=== PATIENT | male | born 1990 ===

== ENCOUNTER 2025-06-02 18:08 | Observation (INO) | payer OTHER ==
[~2025-06-02] VITALS: Ht 185.4 cm; Wt 58.1 kg
[2025-06-02 19:30] LABS: BASOPHILS ABSOLUTE AUTO 0.02 K/mm3 (0.00-0.23); BASOPHILS PERCENT AUTO 0 % (0-2); EOSINOPHILS ABSOLUTE AUTO 0.22 K/mm3 (0.00-0.68); EOSINOPHILS PERCENT AUTO 3 % (0-6); Hematocrit 43.6 % (37.0-53.0); Hemoglobin 14.9 g/dL (13.5-17.5); IMMATURE GRAN ABSOLUTE AUTO 0.03 K/mm3 (0.00-0.10); IMMATURE GRAN PERCENT AUTO 0 % (0-1); LYMPHOCYTES ABSOLUTE AUTO 0.76 K/mm3 (0.84-5.20); LYMPHOCYTES PERCENT AUTO 9 % (21-46); MONOCYTES ABSOLUTE AUTO 0.94 K/mm3 (0.16-1.47); MONOCYTES PERCENT AUTO 11 % (4-13); Mean Corpuscular HGB Conc 34.2 g/dL (31.5-36.5); Mean Corpuscular Volume 91 fL (80-100); NEUTROPHILS ABSOLUTE AUTO 6.84 K/mm3 (1.96-9.15); NEUTROPHILS PERCENT AUTO 78 % (41-73); NRBC ABSOLUTE 0.00 K/mm3 (0.00-0.02); NRBC Auto 0.0 /100 WBC (0.0-0.2); Platelet Count 228 K/mm3 (150-400); RDW Coefficient Variation 12.9 % (11.7-14.2); RDW Standard Deviation 42.5 fL (35.1-46.3)
[2025-06-02 19:42] LABS: Alanine Aminotransfer (ALT/SGP 22.0 U/L (12-78); Albumin, Blood 4.3 g/dL (3.4-5.0); Albumin/Globulin Ratio 1.1 (0.8-1.8); Anion Gap 8.0 mmol/L (3-11); Aspartate Aminotrans (AST/SGOT 22.0 U/L (12-37); Bilirubin, Total 1.0 mg/dL (0.1-1.0); Blood Urea Nitrogen 11.0 mg/dL (8-24); CO2, Blood 26.0 mmol/L (21-32); Calcium, Blood 8.8 mg/dL (8.5-10.1); Chloride, Blood 104.0 mmol/L (98-108); Creatinine, Blood 0.97 mg/dL (0.60-1.20); Globulin, Blood 3.8 g/dL (2.2-4.0); Glucose, Blood 111.0 mg/dL (70-99); Potassium, Blood 3.3 mmol/L (3.5-5.5); Sodium, Blood 135.0 mmol/L (136-145); Total Protein, Blood 8.1 g/dL (6.4-8.2)
[2025-06-02] MEDS ORDERED: NS 1,000 ML IV SCH (20:30)
[2025-06-02] MEDS ORDERED: Albuterol 2.5 MG/3 ML VIAL INH SCH ×2 (20:30→21:30)
[2025-06-02] MEDS ORDERED: Mag Sulfate 1 GM/D5% 100ML 100 ML IV ONE (21:25)
[2025-06-02 21:30] LABS: Influenza A, PCR NEGATIVE (NEGATIVE); Influenza B, PCR NEGATIVE (NEGATIVE); Resp Syncytial Virus, PCR NEGATIVE (NEGATIVE); SARS-Cov-2 (COVID-19) PCR, MMC NEGATIVE (NEGATIVE)
[2025-06-02] MEDS ORDERED: Ipratropium/Albuterol SulF 2.5-0.5MG/3 ML Amp INH PRN (22:50)
[2025-06-02] MEDS ORDERED: Ondansetron HCl 2 MG / ML 2ML Vial IV PRN (22:50)
[2025-06-02] MEDS ORDERED: FLU VACC TS2025-26(6MOS UP)/PF 45 MCG/0.5 ML SYRINGE IM SCH (22:50)
[2025-06-02] MEDS ORDERED: Enoxaparin 40 MG/0.4 ML SYR SC SCH (23:00)
[2025-06-02 23:20] LABS: Magnesium, Blood 2.1 mg/dL (1.6-2.4); Phosphorus, Blood 2.4 mg/dL (2.5-4.9)
[2025-06-03] MEDS ORDERED: NS 1,000 ML IV ONE (00:03)
[2025-06-03] MEDS ORDERED: NS 1,000 ML IV SCH (00:15)
[2025-06-03 00:30] VITALS: BP 113/78
[2025-06-03] MEDS ORDERED: TRELEGY ELLIPT1 EACH INH (01:00)
[2025-06-03] MEDS ORDERED: ALBU90OI INH (01:00)
[2025-06-03 01:03] VITALS: BP 135/90
[2025-06-03 01:12] VITALS: BP 135/90
[2025-06-03] MEDS ORDERED: Albuterol 2.5 MG/3 ML VIAL INH PRN (01:50)
[2025-06-03] MEDS ORDERED: Ipratropium/Albuterol SulF 2.5-0.5MG/3 ML Amp INH SCH (01:50)
[2025-06-03] MEDS ORDERED: Sodium Phosphate 20 MM in Dextrose 5% 500 ML IV STA (03:57)
[2025-06-03 04:06] VITALS: BP 144/95
[2025-06-03 04:25] LABS: BASOPHILS ABSOLUTE AUTO 0.01 K/mm3 (0.00-0.23); BASOPHILS PERCENT AUTO 0 % (0-2); EOSINOPHILS ABSOLUTE AUTO 0.00 K/mm3 (0.00-0.68); EOSINOPHILS PERCENT AUTO 0 % (0-6); Hematocrit 39.5 % (37.0-53.0); Hemoglobin 13.3 g/dL (13.5-17.5); IMMATURE GRAN ABSOLUTE AUTO 0.01 K/mm3 (0.00-0.10); IMMATURE GRAN PERCENT AUTO 0 % (0-1); LYMPHOCYTES ABSOLUTE AUTO 0.23 K/mm3 (0.84-5.20); LYMPHOCYTES PERCENT AUTO 4 % (21-46); MONOCYTES ABSOLUTE AUTO 0.12 K/mm3 (0.16-1.47); MONOCYTES PERCENT AUTO 2 % (4-13); Mean Corpuscular HGB Conc 33.7 g/dL (31.5-36.5); Mean Corpuscular Volume 92 fL (80-100); NEUTROPHILS ABSOLUTE AUTO 5.27 K/mm3 (1.96-9.15); NEUTROPHILS PERCENT AUTO 93 % (41-73); NRBC ABSOLUTE 0.00 K/mm3 (0.00-0.02); NRBC Auto 0.0 /100 WBC (0.0-0.2); Platelet Count 185 K/mm3 (150-400); RDW Coefficient Variation 13.0 % (11.7-14.2); RDW Standard Deviation 43.8 fL (35.1-46.3)
[2025-06-03 04:41] LABS: Alanine Aminotransfer (ALT/SGP 19.0 U/L (12-78); Albumin, Blood 3.6 g/dL (3.4-5.0); Albumin/Globulin Ratio 1.1 (0.8-1.8); Anion Gap 7.0 mmol/L (3-11); Aspartate Aminotrans (AST/SGOT 13.0 U/L (12-37); Bilirubin, Total 0.6 mg/dL (0.1-1.0); Blood Urea Nitrogen 9.0 mg/dL (8-24); CO2, Blood 25.0 mmol/L (21-32); Calcium, Blood 8.1 mg/dL (8.5-10.1); Chloride, Blood 110.0 mmol/L (98-108); Creatinine, Blood 0.87 mg/dL (0.60-1.20); Globulin, Blood 3.3 g/dL (2.2-4.0); Glucose, Blood 196.0 mg/dL (70-99); Potassium, Blood 4.1 mmol/L (3.5-5.5); Sodium, Blood 138.0 mmol/L (136-145); Total Protein, Blood 6.9 g/dL (6.4-8.2)
--- NOTE | 2025-06-03 06:00 | NUR ---
SHIFT SUMMARY PATIENT ADMITTED TO UNIT THIS SHIFT. WAS ABLE TO STAND AND TRANSFER FROM ED GURNEY TO BED. PATIENT COOPERATIVE WITH CALL CARE. WISHED TO NOT CHANGE INTO HOSPITAL GOWN. NO OBVIOUS RESP DISTRESS. INSPIRATORY AND EXPIRATORY WHEEZES AUSCULTATED T/O LUNG VELAZCO, DECREASED AFTER BREATHING TREATMENT AND STEROIDS. SPO02 WNL ON ROOM AIR. PATIENT EXPRESSED DESIRE TO BE DISCHARGED EARLY IN MORNING BECAUSE HE HAS NO ONE TO CARE FOR HIS DOGS AT HOME. PATIENT EXPRESSING DESIRE TO EAT AND DRINK. PROVIDER CONTACTED AT 0400 ASKING FOR DIET ORDER. NO NEW ORDERS RECEIVED. PATIENT SLEPT ON AND OFF THROUGHOUT THE NIGHT AND AMBULATED TO WITH IV PUMP W/O ISSUE. CALL LIGHT REMAINED IN PLACE. PLAN OF CARE ONGOING. BED IN LOWEST POSITION.
[2025-06-03 06:15] VITALS: BP 158/108
--- NOTE | 2025-06-03 06:28 | NUR ---
AMA DISCHARGE NOTE PATIENT VERBALIZED THAT HE DESIRED TO LEAVE AMA. STS HE FEELS MUCH BETTER. INQUIRED WITH PATIENT TO REASON FOR LEAVING, STS HE HAS 4 DOGS LIVING IN HIS RV AND NO ONE TO CHECK ON THEM. STS HE IS AFRAID OF DOGS TEARING UP HIS HOUSE AND NEEDING TO BE FED/ POTTY BREAK. WE DISCUSSED OTHER OPTIONS LIKE WAITING UNTIL PROVIDER ROUNDS, FINDING A FRIEND TO HELP, ETC. PATIENT PERSISTANT ON WANTING TO LEAVE. PROVIDER NOTIFIED. WENT OVER AMA FORM. PATIENT VERBALIZES UNDERSTANDING OF RISKS AND KNOWS THAT HE CAN RETURN TO HOSPITAL IF NEEDED. PATIENT AMBULATED OUT OF UNIT IN NO DISTRESS AND WILL DRIVE HIMSELF HOME.
[2025-06-03] MEDS ORDERED: Misc. Inhaler INH SCH (06:45)
== END 2025-06-03 06:15 | disposition home or self-care (01) ==
LOC: ER 18:08 → PCU 18:09 → ERHOLD 18:09 → PCU 06-03 00:55
PROVIDERS: Student in an Organized Health Care Education/Training Program; ADMIT Internal Medicine
DX: J45.41 Moderate persistent asthma with (acute) exacerbation (principal); Z79.899 Other long term (current) drug therapy; R05.8 Other specified cough
CPT/HCPCS: 36415; 71046; 80053; 83735; 83880; 84100; 85025; 87637; 93005; 93010; 94640; 94645; 94760; 96365; 96375; 96376; 99285-25; A9270; G0378; J2919; J3475; J3480; J7030; J7050; J7060; J7512

== ENCOUNTER 2025-08-04 16:36 | Emergency (ER) | payer OTHER ==
[~2025-08-04] VITALS: Ht 185.4 cm; Wt 61.2 kg
[~2025-08-04 16:36] MED LIST: ALBU90OI INH; TRELEGY ELLIPT1 EACH INH
[2025-08-04 17:03] VITALS: BP 134/84
[2025-08-04] MEDS ORDERED: Ipratropium/Albuterol SulF 2.5-0.5MG/3 ML Amp INH ONE (17:25)
[2025-08-04] MEDS ORDERED: RX Prepack Albuterol 1 PREPACK/6.7 GM INH UD ONE (17:25)
[2025-08-04] MEDS ORDERED: PRED20 PO (18:59)
[2025-08-04] MEDS ORDERED: BREYNA 160-4.10.3 GM INH (18:59)
== END 2025-08-04 19:05 | disposition home or self-care (01) ==
LOC: ER 16:36
DX: J45.909 Unspecified asthma, uncomplicated (principal); Z79.899 Other long term (current) drug therapy
CPT/HCPCS: 99283-25; A9270; J7512